=== PATIENT | male | born 1970 | race Caucasian/White ===

== ENCOUNTER → 2024-01-12 16:20 | Outpatient (CLI) | payer OTHER, SELFPAY ==
--- NOTE | 2024-01-12 16:21 | DI.US.S_ITS ---
PROCEDURE: US EXTREMITY NONVASC LOWER LT INDICATIONS: sudden onset bruising swell/mass elizabeth-Med calf no inj TECHNIQUE: Real-time scanning was performed of the area of clinical concern involving the distal medial anterior calf, with image documentation. Color Doppler was also utilized. COMPARISON: None. FINDINGS: At the site of clinical concern, there is a soft tissue hypoechoic focus, without abnormal surrounding vascularity measuring 4 x 1.8 x 3.3 cm. IMPRESSION: These imaging findings are most compatible with a soft tissue hematoma. No abnormal vascularity can be seen. Dictated by: Danis Duff M.D. on 01/12/2024 at 16:13 Approved by: Danis Duff M.D. on 01/12/2024 at 16:15
== END ==
LOC: US 16:21
PROVIDERS: Referring Provider Student in an Organized Health Care Education/Training Program; Visit Provider Student in an Organized Health Care Education/Training Program
DX: T14.8XXA Other injury of unspecified body region, initial encounter (principal); M79.662 Pain in left lower leg; M79.89 Other specified soft tissue disorders
CPT/HCPCS: 76882